=== PATIENT | male | born 1985 | race Caucasian/White ===

== ENCOUNTER 2020-06-11 16:42 | Emergency (ER) | payer BC, OTHER ==
[~2020-06-11] VITALS: Ht 180 cm; Wt 81.6 kg
[2020-06-11] MEDS ORDERED: NS IV 1000 ML 1,000 ML IV ONE (17:06)
[2020-06-11 17:12] LABS: BASOPHILS # (AUTO) 0.1 10^3/uL (0.0-0.1); BASOPHILS % (AUTO) 1 % (0-10); EOSINOPHILS # (AUTO) 0.2 10^3/uL (0.0-0.3); EOSINOPHILS % (AUTO) 3 % (0-10); HEMATOCRIT 45 % (40-54); HEMOGLOBIN 15.9 G/DL (13.3-17.7); LYMPHOCYTES # (AUTO) 1.6 X 10^3 (1.0-4.0); LYMPHOCYTES % (AUTO) 28 % (12-44); MEAN CORPUSCULAR HEMOGLOBIN 31 PG (25-34); MEAN CORPUSCULAR HGB CONC 35 G/DL (32-36); MEAN CORPUSCULAR VOLUME 88 FL (80-99); MEAN PLATELET VOLUME 10.6 FL (7.4-10.4); MONOCYTES # (AUTO) 0.7 X 10^3 (0.0-1.0); MONOCYTES % (AUTO) 13 % (0-12); NEUTROPHILS % (AUTO) 54 % (42-75); PLATELET COUNT 204 10^3/uL (130-400); RED CELL DISTRIBUTION WIDTH 13.1 % (10.0-14.5); WHITE BLOOD COUNT 5.6 10^3/uL (4.3-11.0)
[2020-06-11 17:16] LABS: ALBUMIN 4.2 GM/DL (3.2-4.5); CHLORIDE 104 MMOL/L (98-107); POTASSIUM 4.7 MMOL/L (3.6-5.0); SODIUM 139 MMOL/L (135-145)
[2020-06-11 17:17] LABS: CALCIUM 8.7 MG/DL (8.5-10.1)
[2020-06-11 17:18] LABS: GLUCOSE 123 MG/DL (70-105)
[2020-06-11 17:19] LABS: TOTAL PROTEIN 7.2 GM/DL (6.4-8.2)
[2020-06-11 17:20] LABS: BILIRUBIN,TOTAL 1.1 MG/DL (0.1-1.0); CARBON DIOXIDE 24 MMOL/L (21-32)
[2020-06-11 17:22] LABS: ALKALINE PHOSPHATASE 89 U/L (40-136); CREATININE SERUM 1.22 MG/DL (0.60-1.30); GFR ESTIMATED > 60
[2020-06-11 17:23] LABS: BUN/CREATININE RATIO 9
--- NOTE | 2020-06-11 17:23 | ED Abdominal Pain ---
General Chief Complaint: Abdominal/GI Problems Stated Complaint: ABNORMAL LABS Source of Information: Patient Exam Limitations: No Limitations History of Present Illness Date Seen by Provider: Jun 11, 2020 Time Seen by Provider: 16:59 Initial Comments Here with report of lower abdominal pain that is central but does go towards the right side. Seen at urgent care yesterday and had x-ray and labs done. His called today and there is apparently concerns about ileus as a told him that they thought his bowel may be asleep and he should seek care at the emergency department. Is actually feeling a little better but still has early satiety with foods and has bowel movement. Quick after eating. Does seem to have more pain to the right lower quadrant. Does complain of some pain with walking. Timing/Duration: 1-2 Days Severity/Quality: Moderate, Aching Location: Periumbilical Radiation: RLQ, Epigastric Activities at Onset: None Modifying Factors: Worsens With Eating, Worsens With Movement Associated Symptoms: No Back Pain, No Chest Pain, No Fever/Chills, No Nausea/Vomiting, No Shortness of Air, No Swelling/Mass in Abdomen, No Weakness Allergies and Home Medications Allergies Coded Allergies: No Known Drug Allergies (Unverified , 06/11/20) Home Medications No Active Prescriptions or Reported Meds Patient Home Medication List Home Medication List Reviewed: Yes Review of Systems Review of Systems Constitutional: see HPI; No chills, No fever EENTM: No Symptoms Reported Respiratory: Denies Cough, Denies Shortness of Air Cardiovascular: Denies Chest Pain, Denies Edema Gastrointestinal: Abdominal Pain Genitourinary: Denies Hematuria, Denies Pain Musculoskeletal: No back pain, No muscle pain Skin: no symptoms reported Psychiatric/Neurological: No Symptoms Reported All Other Systems Reviewed Negative Unless Noted: Yes Past Dcroerf-Awjhtk-Htcifk Hx Past Med/Social Hx: Reviewed Nursing Past Med/Soc Hx Patient Social History Alcohol Use: Occasionally Uses Recreational Drug Use: No Smoking Status: Never a Smoker Type Used: Smokeless Tobacco Recent Foreign Travel: No Contact w/Someone Who Travel: No Recent Hopitalizations: No Physical Abuse: No Sexual Abuse: No Mistreated: No Fear: No Seasonal Allergies Seasonal Allergies: No Past Medical History Surgeries: No Respiratory: No Cardiac: No Neurological: No Genitourinary: No Gastrointestinal: No Musculoskeletal: No Endocrine: No HEENT: No Psychosocial: No Integumentary: No Blood Disorders: No Family Medical History Reviewed Nursing Family Hx Physical Exam Vital Signs Vital Signs - First Documented 06/11/20 17:06 Temp 36.6 Pulse 80 Resp 18 B/P (MAP) 125/90 (102) Pulse Ox 100 Capillary Refill : Height/Weight/BMI Height: '" Weight: lbs. oz. kg; BMI Method: General Appearance: WD/WN, no apparent distress HEENT: PERRL/EOMI, pharynx normal Neck: full range of motion, supple Respiratory: lungs clear, normal breath sounds Cardiovascular: regular rate, rhythm Gastrointestinal: soft; No guarding, No rebound; tenderness (right lower quadrant and central very mild pain.) Extremities: non-tender, normal inspection Back: normal inspection, no CVA tenderness, no vertebral tenderness Neurologic/Psychiatric: alert, oriented x 3 Skin: normal color, warm/dry Progress/Results/Core Measures Results/Orders Lab Results Laboratory Tests Test 06/11/20 17:08 06/11/20 17:32 Range/Units White Blood Count 5.6 4.3-11.0 10^3/uL Red Blood Count 5.09 4.35-5.85 10^6/uL Hemoglobin 15.9 13.3-17.7 G/DL Hematocrit 45 40-54 % Mean Corpuscular Volume 88 80-99 FL Mean Corpuscular Hemoglobin 31 25-34 PG Mean Corpuscular Hemoglobin Concent 35 32-36 G/DL Red Cell Distribution Width 13.1 10.0-14.5 % Platelet Count 204 130-400 10^3/uL Mean Platelet Volume 10.6 H 7.4-10.4 FL Neutrophils (%) (Auto) 54 42-75 % Lymphocytes (%) (Auto) 28 12-44 % Monocytes (%) (Auto) 13 H 0-12 % Eosinophils (%) (Auto) 3 0-10 % Basophils (%) (Auto) 1 0-10 % Neutrophils # (Auto) 3.0 1.8-7.8 X 10^3 Lymphocytes # (Auto) 1.6 1.0-4.0 X 10^3 Monocytes # (Auto) 0.7 0.0-1.0 X 10^3 Eosinophils # (Auto) 0.2 0.0-0.3 10^3/uL Basophils # (Auto) 0.1 0.0-0.1 10^3/uL Sodium Level 139 135-145 MMOL/L Potassium Level 4.7 3.6-5.0 MMOL/L Chloride Level 104 98-107 MMOL/L Carbon Dioxide Level 24 21-32 MMOL/L Anion Gap 11 5-14 MMOL/L Blood Urea Nitrogen 11 7-18 MG/DL Creatinine 1.22 0.60-1.30 MG/DL Estimat Glomerular Filtration Rate > 60 BUN/Creatinine Ratio 9 Glucose Level 123 H 70-105 MG/DL Calcium Level 8.7 8.5-10.1 MG/DL Corrected Calcium 8.5 8.5-10.1 MG/DL Total Bilirubin 1.1 H 0.1-1.0 MG/DL Aspartate Amino Transf (AST/SGOT) 29 5-34 U/L Alanine Aminotransferase (ALT/SGPT) 22 0-55 U/L Alkaline Phosphatase 89 40-136 U/L C-Reactive Protein High Sensitivity 1.21 H 0.00-0.50 MG/DL Total Protein 7.2 6.4-8.2 GM/DL Albumin 4.2 3.2-4.5 GM/DL Urine Color YELLOW Urine Clarity CLEAR Urine pH 7.0 5-9 Urine Specific Logan 1.015 L 1.016-1.022 Urine Protein NEGATIVE NEGATIVE Urine Glucose (UA) NEGATIVE NEGATIVE Urine Ketones NEGATIVE NEGATIVE Urine Nitrite NEGATIVE NEGATIVE Urine Bilirubin NEGATIVE NEGATIVE Urine Urobilinogen 2.0 < = 1.0 MG/DL Urine Leukocyte Esterase NEGATIVE NEGATIVE Urine RBC (Auto) NEGATIVE NEGATIVE Urine RBC 0 /HPF Urine WBC 0 /HPF Urine Squamous Epithelial Cells 0-2 /HPF Urine Crystals NONE /LPF Urine Bacteria 0 /HPF Urine Casts NONE /LPF Urine Mucus NEGATIVE /LPF Urine Culture Indicated NO My Orders Orders - MYA ROSARIO MD Cbc With Automated Diff (06/11/20 17:06) Comprehensive Metabolic Panel (06/11/20 17:06) Hs C Reactive Protein (06/11/20 17:06) Ua Culture If Indicated (06/11/20 17:06) Ed Iv/Invasive Line Start (06/11/20 17:06) Ns Iv 1000 Ml (Sodium Chloride 0.9%) (06/11/20 17:06) Vital Signs/I&O 06/11/20 17:06 Temp 36.6 Pulse 80 Resp 18 B/P (MAP) 125/90 (102) Pulse Ox 100 Progress Progress Note : Progress Note Seen and evaluated. IV, labs, UA, normal saline 1 L bolus ordered. monitor patient. 1757: Labs are reassuring and UA is negative. I did discuss with the patient at length regarding findings. Given his presentation I do not believe there is bowel obstruction and given his rather normal labs and low CRP, appendicitis would be less likely. UA shows no blood so stones would be less likely and UTIs out as well. At this point we both agree that monitoring at home with return tomorrow for recheck as needed is appropriate and he agrees. I did discuss with him that I was on shift tomorrow and that he can come back in the morning for recheck and he agreed. Discharged home with return precautions. Patient verbalize understanding instructions and agreement with plan. Departure Impression Primary Impression: Abdominal pain Qualified Codes: R10.30 - Lower abdominal pain, unspecified Disposition: 01 HOME, SELF-CARE Condition: Improved Departure-Patient Inst. Decision time for Depature: 18:03 Referrals: NO,LOCAL PHYSICIAN (PCP) Primary Care Physician NINI DICKSON (Family) Primary Care Physician Patient Instructions: Severe Abdominal Pain, Adult (DC) Add. Discharge Instructions: All discharge instructions reviewed with patient and/or family. Voiced understanding. Clear liquid or legs IV for the next 24 hours and then advance as tolerated. Return in the morning for recheck and further evaluation if not improved. Return earlier for worse pain, vomiting, fever, weakness, breathing problems or other concerns as needed. Scripts No Active Prescriptions or Reported Meds MYA ROSARIO MD Jun 11, 2020 17:23
[2020-06-11 17:25] LABS: ALANINE AMINOTRANSFERASE 22 U/L (0-55)
[2020-06-11 17:41] LABS: BILIRUBIN,URINE NEGATIVE (NEGATIVE); CLARITY,URINE CLEAR; COLOR,URINE YELLOW; GLUCOSE, URINE (UA) NEGATIVE (NEGATIVE); KETONES,URINE NEGATIVE (NEGATIVE); LEUKOCYTE ESTERASE ,URINE NEGATIVE (NEGATIVE); NITRITE,URINE NEGATIVE (NEGATIVE); PROTEIN,URINE NEGATIVE (NEGATIVE)
[2020-06-11 17:49] LABS: BACTERIA,URINE 0 /HPF; RBC,URINE 0 /HPF; SQUAMOUS EPITHELIAL CELL,UR 0-2 /HPF; WBC,URINE 0 /HPF
[2020-06-11 18:19] VITALS: BP 123/70
--- OUTSIDE RECORDS SUMMARY | 2020-06-11 19:56 | XMS REPORT | Continuity of Care Document ---
Author Organization Unknown Address Unknown Phone Unavailable Allergies Active Description Code Type Severity Reaction Onset Reported/Identified Relationship to Patient Clinical Status Yes NO KNOWN DRUG ALLERGIES UNKNOWN NO KNOWN DRUG ALLERG Yes NO KNOWN DRUG ALLERGIES UNKNOWN UNKNOWN Yes No Known Drug Allergies [id number] Drug Allergy Unknown N/A 06/11/2020 Medications Medication Packaging Start Date St op Date Route Dosage Sig BUTALBIT/APAP/CAFF TAB (FIORICET) Dose(s) 09/05/2017 09/12/2017 PRN Daily LACTATED RINGERS 1000CC IV BAG INJ ml 09/07/2017 09/14/2017 CONTINUOUSEVERY 0 Hour CEFAZOLIN VIAL INJ 1 GM (ANCEF) GM 09/07/2017 09/07/2017 ONCE&0800 HYDROCODONE/APAP 5MG/325MG T AB 5 MG/325MG (BAYRON-TAB 5/325) TAB 09/07/2017 09/07/2017 ONCE&0910 Problems Date Dx Coded Attending Type Code Diagnosis Diagnosed By 09/07/2017 Turner Moreland V25.2 ENCOUNTER FOR STERILIZATION 09/07/2017 Turner Moreland Z30.2 ENCOUNTER FOR STERILIZATION 05/23/2018 W 338.21 CHR ONIC PAIN DUE TO TRAUMA 05/23/2018 W 723.1 CERV ICALGIA 05/23/2018 W 784.0 HEADACHE 05/23/2018 W 847.0 NECK SPRAIN 05/23/2018 W G89.21 CHR ONIC PAIN DUE TO TRAUMA 05/23/2018 W R51 HEADACHE 05/23/2018 W S16.1 STRA IN OF MUSCLE, FASCIA AND TENDON AT NECK LEVEL 02/27/2019 W 300.00 ANX IETY STATE, UNSPECIFIED 02/27/2019 W 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, NOT ELSEWHERE CLASSIFIED 02/27/2019 W 780.50 UNS PECIFIED SLEEP DISTURBANCE 02/27/2019 W 780.79 OTH ER MALAISE AND FATIGUE 02/27/2019 W F32.9 JESSICA R DEPRESSIVE DISORDER, SINGLE EPISODE, UNSPECIFIED 02/27/2019 W F41.9 ANXI ETY DISORDER, UNSPECIFIED 02/27/2019 W G47.9 SLEE P DISORDER, UNSPECIFIED 02/27/2019 W R53.1 WEAKNESS 03/25/2019 W 300.00 ANX IETY STATE, UNSPECIFIED 03/25/2019 W 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, NOT ELSEWHERE CLASSIFIED 03/25/2019 W 780.59 OTH ER SLEEP DISTURBANCES 03/25/2019 W 780.79 OTH ER MALAISE AND FATIGUE 03/25/2019 W F32.9 JESSICA R DEPRESSIVE DISORDER, SINGLE EPISODE, UNSPECIFIED 03/25/2019 W F41.9 ANXI ETY DISORDER, UNSPECIFIED 03/25/2019 W G47.8 OTHE R SLEEP DISORDERS 03/25/2019 W R53.1 WEAKNESS Procedures There is no data. Results Test Result Range Lab Card - 09/04/17 14:10 LabCard Specimen submitted to [facility] for Testing. MRSA Screen - 09/04/17 14:10 FINAL CULTURE RESULTS MRSA Negative Nasal Culture MEDIA PLATED Setup at 14:23 on 09/04/2017 Surgical Pathology - 09/07/17 08:24 Surg Path Sent to [facility] Complete blood count (CBC) with automate d white blood cell (WBC) differential - 06/11/20 17:08 Blood leukocytes automated count (number/volume) 5.6 10*3/uL 4.3-11.0 Blood erythrocytes automated count (number/volume) 5.09 10*6/uL 4.35-5.85 Venous blood hemoglobin measurement (mass/volume) 15.9 g/dL 13.3-17.7 Blood hematocrit (volume fraction) 45 % 40-54 Automated erythrocyte mean corpuscular volume 88 [ foz_us] 80-99 Automated erythrocyte mean corpuscular h emoglobin (mass per erythrocyte) 31 pg 25-34 Automated erythrocyte mean corpuscular h emoglobin concentration measurement (mass/volume) 35 g/dL 32-36 Automated erythrocyte distribution width ratio 13. 1 % 10.0- 14.5 Automated blood platelet count (count/volume) 204 10*3/uL 130-400 Automated blood platelet mean volume measurement 10.6 [foz_us] 7.4-10.4 Automated blood neutrophils/100 leukocytes 54 % 42-75 Automated blood lymphocytes/100 leukocytes 28 % 12-44 Blood monocytes/100 leukocytes 13 % 0-12 Automated blood eosinophils/100 leukocytes 3 % 0-10 Automated blood basophils/100 leukocytes 1 % 0-10 Blood neutrophils automated count (number/volume) 3.0 10*3 1.8-7.8 Blood lymphocytes automated count (number/volume) 1.6 10*3 1.0-4.0 Blood monocytes automated count (number/volume) 0. 7 10*3 0.0-1.0 Automated eosinophil count 0.2 10*3/uL 0 .0-0.3 Automated blood basophil count (count/volume) 0.1 10*3/uL 0.0-0.1 Comprehensive metabolic panel - 06/11/20 17:08 Serum or plasma sodium measurement (moles/volume) 139 mmol/L 135-145 Serum or plasma potassium measurement (moles/volume) 4.7 mmol/L 3.6-5.0 Serum or plasma chloride measurement (moles/volume) 104 mmol/L 98-107 Carbon dioxide 24 mmol/L 21-32 Serum or plasma anion gap determination (moles/volume) 11 mmol/L 5-14 Serum or plasma urea nitrogen measurement (mass/volume ) 11 mg/dL 7-18 Serum or plasma creatinine measurement (mass/volume) 1.22 mg/dL 0.60-1.30 Serum or plasma urea nitrogen/creatinine mass ratio 9 NRG Serum or plasma creatinine measurement w ith calculation of estimated glomerular filtration rate > NRG Serum or plasma glucose measurement (mass/volume) 123 mg/dL 70-105 Serum or plasma calcium measurement (mass/volume) 8.7 mg/dL 8.5-10.1 Serum or plasma total bilirubin measurement (mass/volu me) 1.1 mg/dL 0.1-1.0 Serum or plasma alkaline phosphatase manda surement (enzymatic activity/volume) 89 U/L 40-136 Serum or plasma aspartate aminotransfera se measurement (enzymatic activity/volume) 29 U/L 5-34 Serum or plasma alanine aminotransferase measurement (enzymatic activity/volume) 22 U/L 0-55 Serum or plasma protein measurement (mass/volume) 7.2 g/dL 6.4-8.2 Serum or plasma albumin measurement (mass/volume) 4.2 g/dL 3.2-4.5 CALCIUM CORRECTED 8.5 mg/dL 8.5-10.1 Serum or plasma C reactive protein measu rement (mass/volume) - 06/11/20 17:08 Serum or plasma C reactive protein measurement (mass/v olume) 1.21 mg/dL 0.00-0.50 Complete urinalysis with reflex to cultu re - 06/11/20 17:32 Urine color determination YELLOW NRG Urine clarity determination CLEAR NR G Urine pH measurement by test strip 7.0 5-9 Specific gravity of urine by test strip 1.015 1.016-1.022 Urine protein assay by test strip, semi-quantitative NEGATIVE NEGATIVE Urine glucose detection by automated test strip NE GATIVE NEGATIVE Erythrocytes detection in urine sediment by light micr oscopy NEGATIVE NEGATIVE Urine ketones detection by automated test strip NE GATIVE NEGATIVE Urine nitrite detection by test strip NEGATIVE NEGATIVE Urine total bilirubin detection by test strip NEGA TIVE NEGATIVE Urine urobilinogen measurement by automated test strip (mass/volume) 2.0 mg/dL < = 1.0 Urine leukocyte esterase detection by dipstick NEG ATIVE NEGATIVE Automated urine sediment erythrocyte cou nt by microscopy (number/high power field) 0 [HPF] NRG Automated urine sediment leukocyte count by microscopy (number/high power field) 0 [HPF] NRG Bacteria detection in urine sediment by light microscopy 0 NRG Squamous epithelial cells detection in u rine sediment by light microscopy 0-2 NRG Crystals detection in urine sediment by light microsco py NONE NRG Casts detection in urine sediment by light microscopy NONE NRG Mucus detection in urine sediment by light microscopy NEGATIVE NRG Complete urinalysis with reflex to culture NO NRG Encounters ACCT No. Visit Date/Time Discharge Status Pt. Type Provider Facility Loc./Unit Complaint [id number] 09/07/2017 07:06:00 09/07/2017 09:35: 00 DIS Outpatient Turner Moreland [id number] 09/04/2017 13:51:00 09/04/2017 23:59: 00 DIS Outpatient Turner Moreland [id number] 03/25/2019 13:44:00 Document Registration [id number] 02/27/2019 13:57:00 Document Registration [id number] 05/23/2018 15:57:00 Document Registration [id number] 09/06/2017 15:39:53 Document Registration [id number] 06/11/2020 16:43:00 020 18:19:00 DIS Emergency MARLENE FRYE, MYA Michael [facility] ER ABNORMAL LABS [id number] 06/10/2020 13:40:00 ACT Outpatient ANGEL HERNÁNDEZ [facility] [address]
== END 2020-06-11 18:19 | disposition home or self-care (01) ==
LOC: EDUNIT# 16:42 → ER 16:43
DX: R10.31 Right lower quadrant pain (principal)
CPT/HCPCS: 36415; 80053; 81000; 85025; 85027; 86141